=== PATIENT | female | born 1980 | race African-American/Black ===

== ENCOUNTER 2016-07-03 05:19 | Emergency (ER) | payer OTHER ==
[~2016-07-03] VITALS: Ht 162.6 cm; Wt 89.8 kg
[2016-07-03 05:34] VITALS: BP 135/80
--- NOTE | 2016-07-03 06:14 | PHYS DOC ---
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 She is not really short of air. No blood in the vomit. No diarrhea. The thing that started first was abdominal pain. It's located in the epigastrium and sometimes goes to the right upper quadrant. It has been continuous since it started yesterday. She's never really had pain like this before. She took some Tums and some ranitidine and neither one of those helped. Patient is in good general health. She had a tubal ligation in 2006. She is on no medications. No known allergies. No primary care doctor. Review of Systems Review of Systems Constitutional: Fever to 101 Eyes: Denies change in visual acuity, redness, or eye pain [] HENT: She has a sore throat and it feels a little bit like strep throat Respiratory: Positive cough negative shortness of breath Cardiovascular: No complaint of chest pain GI: As in history of present illness : Denies dysuria or hematuria [] Musculoskeletal: Denies back pain or joint pain [] Integument: Denies rash or skin lesions [] Neurologic: Denies headache, focal weakness or sensory changes [] Current Medications Current Medications Current Medications Medications (Trade) Dose Ordered Sig/Beka Start Time Stop Time Status Last Admin Dose Admin Ketorolac Tromethamine (Toradol) 30 mg 1X ONCE 07/03/16 06:15 07/03/16 06:17 DC 07/03/16 06:49 30 MG Sodium Chloride (Iv Sodium Chloride 0.9% 1000ml Bag) 1,000 ml @ 1,000 mls/hr Q1H 07/03/16 06:15 07/03/16 07:14 DC 07/03/16 06:48 1,000 MLS/HR Allergies Allergies Allergies Coded Allergies Type Severity Reaction Last Updated Verified No Known Drug Allergies 07/03/16 No Physical Exam Physical Exam Constitutional: Well developed, well nourished, no acute distress, non-toxic appearance. Alert, mentating normally, does appear uncomfortable. HENT: Normocephalic, atraumatic, bilateral external ears normal, oropharynx moist, no oral exudates, tonsils mildly enlarged, not red, no exudates, no tonsillitis nose normal. [] Eyes: conjunctiva normal, no discharge. [] Neck: Normal range of motion, no stridor. [] Cardiovascular:Heart rate regular rhythm, no murmur [] Lungs & Thorax: Bilateral breath sounds clear to auscultation [] Abdomen: Bowel sounds normal, soft, no masses, no pulsatile masses. Nondistended. Tender to palpation in the epigastrium and right upper quadrant. Mild tenderness to palpation throughout the abdomen. No rebound or guarding. Patient was not able to tolerate [facility]'s testing Skin: Warm, dry, no erythema, no rash. [] Extremities: No tenderness, no cyanosis, no clubbing, ROM intact, no edema. [] Neurologic: Alert and oriented X 3, normal motor function, normal sensory function, no focal deficits noted. [] Current Patient Data Vital Signs Vital Signs Date Time Temp Pulse Resp B/P Pulse Ox O2 Delivery O2 Flow Rate FiO2 07/03/16 05:34 98.7 83 20 135/80 97 Room Air 98.7 Lab Values Laboratory Tests Test 07/03/16 05:20 07/03/16 05:35 07/03/16 05:58 07/03/16 06:32 Urine Collection Type Unknown Urine Color Yellow Urine Clarity Clear Urine pH 7.0 Urine Specific [place] >=1.030 Urine Protein Negativemg/dL (NEG-TRACE) Urine Glucose (UA) Negativemg/dL (NEG) Urine Ketones (Stick) Negativemg/dL (NEG) Urine Blood Large (NEG) Urine Nitrite Negative (NEG) Urine Bilirubin Negative (NEG) Urine Urobilinogen Dipstick 1.0mg/dL (0.2 mg/dL) Urine Leukocyte Esterase Negative (NEG) Urine RBC 20-40/HPF (0-2) Urine WBC Occ/HPF (0-4) Urine Squamous Epithelial Cells Many/LPF Urine Bacteria Moderate/HPF (0-FEW) Urine Mucus Marked/LPF Influenza Type A Antigen Negative (NEGATIVE) Influenza Type B Antigen Negative (NEGATIVE) Urine Test Negative (NEG) White Blood Count 10.8x10^3/uL (4.0-11.0) Red Blood Count 4.22x10^6/uL (3.50-5.40) Hemoglobin 12.5g/dL (12.0-15.5) Hematocrit 39.1% (36.0-47.0) Mean Corpuscular Volume 93fL (79-100) Mean Corpuscular Hemoglobin 30pg (25-35) Mean Corpuscular Hemoglobin Concent 32g/dL (31-37) Red Cell Distribution Width 14.5% (11.5-14.5) Platelet Count 253x10^3/uL (140-400) Neutrophils (%) (Auto) 64% (31-73) Lymphocytes (%) (Auto) 27% (24-48) Monocytes (%) (Auto) 7% (0-9) Eosinophils (%) (Auto) 2% (0-3) Basophils (%) (Auto) 1% (0-3) Neutrophils # (Auto) 6.9x10^3uL (1.8-7.7) Lymphocytes # (Auto) 2.9x10^3/uL (1.0-4.8) Monocytes # (Auto) 0.7x10^3/uL (0.0-1.1) Eosinophils # (Auto) 0.2x10^3/uL (0.0-0.7) Basophils # (Auto) 0.1x10^3/uL (0.0-0.2) Sodium Level 143mmol/L (136-145) Potassium Level 4.1mmol/L (3.5-5.1) Chloride Level 107mmol/L (98-107) Carbon Dioxide Level 28mmol/L (21-32) Anion Gap 8 (6-14) Blood Urea Nitrogen 10mg/dL (7-20) Creatinine 0.8mg/dL (0.6-1.0) Estimated GFR (Cockcroft-Gault) 98.8 BUN/Creatinine Ratio 13 (6-20) Glucose Level 93mg/dL (70-99) Calcium Level 9.0mg/dL (8.5-10.1) Total Bilirubin 0.4mg/dL (0.2-1.0) Aspartate Amino Transferase (AST) 18U/L (15-37) Alanine Aminotransferase (ALT) 17U/L (14-59) Alkaline Phosphatase 65U/L (46-116) Total Protein 7.5g/dL (6.4-8.2) Albumin 3.4g/dL (3.4-5.0) Albumin/Globulin Ratio 0.8 (1.0-1.7) L Lipase 88U/L (73-393) Test 07/03/16 06:55 Group A Streptococcus Rapid Negative (NEGATIVE) Laboratory Tests 07/03/16 06:32 Laboratory Tests 07/03/16 06:32 EKG EKG [] Radiology/Procedures Radiology/Procedures [] Course & Med Decision Making Course & Med Decision Making Pertinent Labs and Imaging studies reviewed. 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 Discussed this with the patient his agreeable. We'll start some IV fluids, IV pain medication, labs, we'll also check influenza and strep since she has had a fever. Influenza negative, strep negative, labs unremarkable. The patient was given IV fluids and IV Toradol which did help some. I discussed findings with the patient. Despite normal labs, she is concerned about her right upper quadrant and epigastric pain and requests to have some imaging done. I ordered a ultrasound which showed a normal gallbladder and normal other findings. I reassured the patient that we are not finding any serious cause of her symptoms including epigastric abdominal pain. I advised her to plan to take a couple of days off of work, take ranitidine, rest, clear liquids. If she gets worse, return. If not better in 3-5 days, follow-up with her primary care doctor, she may end up needing referral to GI and endoscopy if symptoms persist. [] Dragon Disclaimer Dragon Disclaimer This electronic medical record was generated, in whole or in part, using a voice recognition dictation system. Departure Departure Impression: Primary Impression: Viral syndrome Additional Impression: Epigastric abdominal pain Disposition: HOME, SELF-CARE Condition: STABLE Referrals: NO PCP (PCP) Patient Instructions: Viral Syndrome Additional Instructions: Tests here did not show the cause of your symptoms or your abdominal pain. I believe you likely have a virus. I recommend continuing ranitidine twice a day until you feel better and then for 3-5 more days. If you are not better in 2-3 days, follow up with primary care physician. If worse, return to emergency. If your pain goes away and then comes back, you may need to see a GI doctor and you may need to have further tests such as endoscopy. Problem Qualifiers JUAREZ GUTIÉRREZ MD Jul 03, 2016 06:14
[2016-07-03] MEDS ORDERED: IV NORMAL SALINE 1000ML BAG 1,000 ML IV SCH (06:15)
[2016-07-03] MEDS ORDERED: KETOROLAC TROMETHAMINE 30 MG/ML SYRINGE. IV ONE (06:15)
[2016-07-03 06:35] LABS: OBC FLU VALID
[2016-07-03 06:46] LABS: BASO # 0.1 x10^3/uL (0.0-0.2); BASO % 1 % (0-3); EOS % 2 % (0-3); HEMATOCRIT 39.1 % (36.0-47.0); HEMOGLOBIN 12.5 g/dL (12.0-15.5); LYMPH # 2.9 x10^3/uL (1.0-4.8); LYMPH % 27 % (24-48); MEAN CORPUSCULAR HEMOGLOBIN 30 pg (25-35); MEAN CORPUSCULAR HGB CONC 32 g/dL (31-37); MEAN CORPUSCULAR VOLUME 93 fL (79-100); MONO % 7 % (0-9); NEUT % 64 % (31-73); PLATELET COUNT 253 x10^3/uL (140-400); RED BLOOD COUNT 4.22 x10^6/uL (3.50-5.40); RED CELL DISTRIBUTION WIDTH 14.5 % (11.5-14.5); WHITE BLOOD COUNT 10.8 x10^3/uL (4.0-11.0)
[2016-07-03 06:49] LABS: BILIRUBIN,URINE NEGATIVE (NEG); GLUCOSE,URINE NEGATIVE (NEG); NITRITE,URINE NEGATIVE (NEG); PROTEIN,URINE NEGATIVE (NEG-TRACE)
[2016-07-03 06:53] LABS: CREATININE 0.8 mg/dL (0.6-1.0); GFR 98.8; POTASSIUM 4.1 mmol/L (3.5-5.1)
[2016-07-03 06:59] LABS: ALBUMIN 3.4 g/dL (3.4-5.0); ALBUMIN/GLOBULIN RATIO 0.8 (1.0-1.7); TOTAL BILIRUBIN 0.4 mg/dL (0.2-1.0); TOTAL PROTEIN 7.5 g/dL (6.4-8.2)
[2016-07-03 07:05] LABS: RBC,URINE 20-40 /HPF (0-2); WBC,URINE OCC /HPF (0-4)
[2016-07-03 07:06] LABS: BACTERIA,URINE MODERATE /HPF (0-FEW); SQUAMOUS EPITHELIAL CELL,UR MANY /LPF
[2016-07-03 07:26] LABS: NEG OBC UR NEG; POS OBC UR POS
[2016-07-03 08:02] LABS: NEGATIVE OBC STREP NEG; POSITIVE OBC STREP POS
--- NOTE | 2016-07-03 08:17 | RAD ---
Right upper quadrant abdominal ultrasound, 07/03/2016: History: Pain The gallbladder is within normal limits in size. There is no sonographic evidence of cholelithiasis. The gallbladder chowdhury are not thickened. No bile duct dilatation is seen. The visualized portions of the liver, pancreas and right kidney are unremarkable. IMPRESSION: No significant abnormality is detected.
== END 2016-07-03 09:55 | disposition home or self-care (01) ==
LOC: ER 05:19
DX: R10.13 Epigastric pain (principal); B34.9 Viral infection, unspecified; Z98.51 Tubal ligation status
CPT/HCPCS: 36415; 76705; 80053; 81001; 81025; 83690; 85027; 87070; 87086; 87804; 87880; 96374; 99285; J1885; J7030

== ENCOUNTER → 2016-09-23 | Outpatient (CLI) | payer OTHER ==
[2016-09-23 11:05] LABS: BASO % 1 % (0-3); EOS % 2 % (0-3); HEMATOCRIT 38.7 % (36.0-47.0); HEMOGLOBIN 12.9 g/dL (12.0-15.5); LYMPH # 2.7 x10^3/uL (1.0-4.8); LYMPH % 45 % (24-48); MEAN CORPUSCULAR HEMOGLOBIN 30 pg (25-35); MEAN CORPUSCULAR HGB CONC 33 g/dL (31-37); MEAN CORPUSCULAR VOLUME 90 fL (79-100); MONO % 8 % (0-9); NEUT % 44 % (31-73); PLATELET COUNT 291 x10^3/uL (140-400); RED BLOOD COUNT 4.29 x10^6/uL (3.50-5.40); RED CELL DISTRIBUTION WIDTH 13.9 % (11.5-14.5); WHITE BLOOD COUNT 5.9 x10^3/uL (4.0-11.0)
[2016-09-23 11:34] LABS: ALBUMIN 3.5 g/dL (3.4-5.0); ALBUMIN/GLOBULIN RATIO 0.8 (1.0-1.7); CALCIUM 8.9 mg/dL (8.5-10.1); CREATININE 0.9 mg/dL (0.6-1.0); GFR 86.2; POTASSIUM 3.9 mmol/L (3.5-5.1); TOTAL BILIRUBIN 0.4 mg/dL (0.2-1.0); TOTAL PROTEIN 7.9 g/dL (6.4-8.2)
[2016-09-23 11:35] LABS: CHOLESTEROL/HDL RATIO 3.4
[2016-09-23 11:44] LABS: FREE T4 0.98 ng/dL (0.76-1.46)
== END | disposition home or self-care (01) ==
LOC: LAB 10:40
PROVIDERS: ATTEND Family Medicine
DX: Z00.00 Encounter for general adult medical examination without abnormal findings (principal)
CPT/HCPCS: 36415; 80053; 80061; 83036; 84439; 84443; 85027

== ENCOUNTER → 2017-03-17 | Outpatient (CLI) | payer OTHER ==
--- NOTE | 2017-03-17 13:04 | RAD ---
Indication injury. Pain. A standing AP view incorporated in both knees was obtained as well as individual targeted AP oblique and lateral views of the right knee. There is mild medial joint space compartment narrowing of the left knee indicative of mild degenerative change. There is some very minimal narrowing of the right medial joint space. An acute bony finding is not seen. There is a small right knee joint effusion
== END | disposition home or self-care (01) ==
LOC: RAD 09:07
PROVIDERS: ATTEND Family Medicine
DX: M25.561 Pain in right knee (principal)
CPT/HCPCS: 73562; 73565

== ENCOUNTER → 2017-08-19 | Outpatient (CLI) | payer OTHER ==
[2017-08-19 09:52] LABS: ADD MAN DIFF? NO
[2017-08-19 10:12] LABS: BASO % 0 % (0-3); EOS # 0.1 x10^3/uL (0.0-0.7); EOS % 1 % (0-3); HEMATOCRIT 40.4 % (36.0-47.0); LYMPH # 2.9 x10^3/uL (1.0-4.8); LYMPH % 46 % (24-48); MEAN CORPUSCULAR HEMOGLOBIN 29 pg (25-35); MEAN CORPUSCULAR HGB CONC 32 g/dL (31-37); MEAN CORPUSCULAR VOLUME 92 fL (79-100); MONO # 0.4 x10^3/uL (0.0-1.1); MONO % 7 % (0-9); NEUT # 2.9 x10^3uL (1.8-7.7); NEUT % 46 % (31-73); PLATELET COUNT 273 x10^3/uL (140-400); RED BLOOD COUNT 4.41 x10^6/uL (3.50-5.40); RED CELL DISTRIBUTION WIDTH 14.5 % (11.5-14.5); WHITE BLOOD COUNT 6.3 x10^3/uL (4.0-11.0)
[2017-08-19 10:38] LABS: ALBUMIN 3.3 g/dL (3.4-5.0); ALBUMIN/GLOBULIN RATIO 0.7 (1.0-1.7); ALK PHOS 67 U/L (46-116); ALT (SGPT) 19 U/L (14-59); ANION GAP 7 (6-14); AST (SGOT) 12 U/L (15-37); BLOOD UREA NITROGEN 12 mg/dL (7-20); BUN/CREATININE RATIO 13 (6-20); CALCIUM 9.2 mg/dL (8.5-10.1); CARBON DIOXIDE 29 mmol/L (21-32); CHLORIDE 104 mmol/L (98-107); CREATININE 0.9 mg/dL (0.6-1.0); GFR 85.7; GLUCOSE 95 mg/dL (70-99); POTASSIUM 3.8 mmol/L (3.5-5.1); SODIUM 140 mmol/L (136-145); TOTAL BILIRUBIN 0.4 mg/dL (0.2-1.0); TOTAL PROTEIN 7.8 g/dL (6.4-8.2)
[2017-08-19 10:41] LABS: THYROID STIM HORMONE (TSH) 0.865 uIU/mL (0.358-3.74)
[2017-08-19 10:41] LABS: FREE T4 0.92 ng/dL (0.76-1.46)
== END | disposition home or self-care (01) ==
LOC: US 09:07
DX: R59.0 Localized enlarged lymph nodes (principal)
CPT/HCPCS: 36415; 76536; 80053; 84439; 84443; 85025

== ENCOUNTER → 2017-09-10 | Outpatient (CLI) | payer OTHER ==
[~2017-09-10] MED LIST: IOHEXOL 300 MG/ML 100ML VIAL. IV
== END | disposition home or self-care (01) ==
LOC: CT 10:32
DX: E04.2 Nontoxic multinodular goiter (principal)
CPT/HCPCS: 70491; Q9967

== ENCOUNTER 2017-09-28 10:40 | Emergency (ER) | payer OTHER | END 2017-09-28 11:51 | disposition home or self-care (01) | LOC: ER 10:40 | DX: M43.6 Torticollis (principal) | CPT/HCPCS: 99283 ==